=== PATIENT | male | born 1935 | race African-American/Black ===

== ENCOUNTER 2021-07-14 12:15 | Emergency (ER) | payer MEDICARE ==
[2021-07-14 13:37] LABS: Hemoglobin 7.7 g/dL (13.5-17.5); Mean Corpuscular Volume 115.9 fl (81.2-95.1); Mean Platelet Volume 10.4 fl (7.4-10.4); Platelet Count 138 10x3/uL (150-450); RBC Distribution Width 15.7 % (11.5-14.5); Red Blood Cell (RBC) Count 2.14 10x6/uL (4.32-5.72); White Blood Cell (WBC) Count 74.3 10x3/uL (3.5-10.5)
[2021-07-14 14:03] LABS: Anisocytosis SLIGHT = 6-15 cells (100X) (0-5/hpf); Lymphocytes 3 % (21-51); Macrocytosis SLIGHT = 6-15 cells (100X) (0-5/hpf); Metamyelocyte 7 % (0-0); Monocytes 1 % (0-10)
[2021-07-14 14:04] LABS: Platelet Morphology Comment Appears Adequate; Reflex for Review?? YES
[2021-07-14 14:06] LABS: MDiff Complete? YES; Neutrophil 89 % (42-75)
[2021-07-14 14:08] LABS: ALT (SGPT) 16 U/L (8-55); AST (SGOT) 16 U/L (5-34); Albumin 3.1 g/dL (3.4-4.8); Alkaline Phosphatase 97 U/L (40-110); Anion Gap 14 mmol/L (10-20); BUN (Urea Nitrogen) 28 mg/dL (8.4-25.7); Bilirubin, Total 0.7 mg/dL (0.2-1.2); Calc. Creatinine Clearance 0 mL/min (70-130); Calcium 7.4 mg/dL (7.8-10.44); Carbon Dioxide 17 mmol/L (23-31); Chloride 113 mmol/L (98-107); Globulin 1.9 g/dL (2.4-3.5); Glucose 104 mg/dL (83-110); Potassium 4.9 mmol/L (3.5-5.1); Sodium 139 mmol/L (136-145)
== END 2021-07-14 18:32 | disposition short-term general hospital (02) ==
LOC: CSHERS 12:15
DX: R55 Syncope and collapse (principal); R42 Dizziness and giddiness; I48.91 Unspecified atrial fibrillation; I12.0 Hypertensive chronic kidney disease with stage 5 chronic kidney disease or end stage renal disease; N18.6 End stage renal disease; I25.10 Atherosclerotic heart disease of native coronary artery without angina pectoris; Z86.73 Personal history of transient ischemic attack (TIA), and cerebral infarction without residual deficits; Z85.46 Personal history of malignant neoplasm of prostate; Z95.1 Presence of aortocoronary bypass graft
CPT/HCPCS: 70450; 71045; 80053; 84484; 85025; 85060; 93005